=== PATIENT | male | born 1990 | race African-American/Black ===

== ENCOUNTER 2020-12-28 16:20 | Emergency (ER) | payer SELFPAY ==
[~2020-12-28] VITALS: Ht 177.8 cm; Wt 136.3 kg
[2020-12-28] MEDS ORDERED: LIDOCAINE-MPF 1%, 5ML INFIL ONE (16:30)
[2020-12-28] MEDS ORDERED: DIPH,PERTUSS(ACELL),TET VAC/PF 0.5 ML IM-VACC ONE ×2 (16:30→18:30)
[2020-12-28] MEDS ORDERED: PLEASE ENTER HEIGHT AND WEIGHT MC SCH (16:30)
[2020-12-28] MEDS ORDERED: PLEASE ENTER ALLERGIES MC SCH (16:30)
--- NOTE | 2020-12-28 17:59 | NUR ---
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
--- NOTE | 2020-12-28 18:24 | NUR ---
PT STATES ABOUT AN HOUR AGO PT WAS USING A KNIFE TO OPEN SOME OTHER KNIFES AND SLIPPED AND CUT HIS LEFT HAND. PT STATES HAS NOT HAD TETANUS IN THE LAST 5 YEARS.
[2020-12-28] MEDS ORDERED: LIDOCAINE-MPF 1%, 2ML ONE (18:29)
[2020-12-28] MEDS ORDERED: NEOSPORIN OINT. PKT 1 PACKET ONE (19:06)
[2020-12-28 19:34] VITALS: BP 136/75
== END 2020-12-28 19:36 | disposition home or self-care (01) ==
LOC: ED 16:50
DX: S61.412A Laceration without foreign body of left hand, initial encounter (principal); E66.01 Morbid (severe) obesity due to excess calories; Z68.41 Body mass index [BMI] 40.0-44.9, adult; X58.XXXA Exposure to other specified factors, initial encounter; Y93.89 Activity, other specified; Y92.009 Unspecified place in unspecified non-institutional (private) residence as the place of occurrence of the external cause; Y99.8 Other external cause status
CPT/HCPCS: 12042; 90471; 90715